=== PATIENT | female | born 1955 | race Caucasian/White ===

== ENCOUNTER 2023-11-14 20:21 | Inpatient (IN) | payer MEDICARE, MEDICAID ==
[~2023-11-14] VITALS: Ht 154.9 cm; Wt 88.0 kg
[2023-11-14] MEDS: MORPHINE SULFATE 10 MG/ML CPJ IM ONE (21:15)
[2023-11-14 21:58] LABS: BASOPHILS % 0.8 % (0.0-2.0); EOSINOPHILS % 0.9 % (0.0-5.0); HEMATOCRIT. 36.7 % (36.0-48.0); LYMPHOCYTES % 34.7 % (20.0-50.0); MEAN CORPUSCULAR HEMOGLOBIN 29.5 pg (28.0-32.0); MEAN CORPUSCULAR HGB CONC 32.6 g/dL (31.0-37.0); MEAN CORPUSCULAR VOLUME 90.6 fL (81.0-99.0); MEAN PLATELET VOLUME 8.4 fl (7.4-10.4); MONOCYTES % 9.2 % (2.0-8.0); NEUTROPHILS % 54.4 % (40.0-76.0); PLATELET 259 x1000/uL (130-400); RED BLOOD CELL COUNT 4.05 mill/uL (4.2-5.4); RED CELL DISTRIBUTION WIDTH 14.5 % (11.6-14.6); WHITE BLOOD COUNT 7.8 x1000/uL (4.5-11.0)
[2023-11-14 22:08] LABS: ALANINE AMINOTRANSFERASE 22 IU/L (10-49); ALBUMIN 4.3 g/dL (3.2-4.8); ASPARTATE AMINOTRANSFERASE 25 IU/L (<34); BILIRUBIN TOTAL 0.3 mg/dL (0.1-1.0); CALCIUM 9.2 mg/dL (8.7-10.4); CARBON DIOXIDE 26 mEq/L (21-32); CHLORIDE 107 mEq/L (98-107); CREATININE 0.7 mg/dL (0.6-1.0); GLUCOSE 96 mg/dL (70-105); PROTEIN TOTAL 7.3 g/dL (6.0-8.3); SODIUM 139 mEq/L (136-145); UREA NITROGEN BLOOD 29 mg/dL (9-23)
[2023-11-14] MEDS: KETOROLAC 60MG/2ML VIAL IM ONE (22:31)
[2023-11-14] MEDS ORDERED: IPRATROPIUM/ALBUTEROL 0.5-3(2.5)MG/3ML NEB HHN PRN (23:45)
[2023-11-14] MEDS ORDERED: GUAIFENESIN 200MG/10ML SUGAR FREE UDC PO PRN (23:45)
[2023-11-14] MEDS ORDERED: CLONIDINE 0.1MG TABLET PO PRN (23:45)
[2023-11-14] MEDS ORDERED: ACETAMINOPHEN 325MG TABLET PO PRN (23:45)
[2023-11-14] MEDS ORDERED: ONDANSETRON HCL 4MG/2ML INJ IV PRN (23:45)
[2023-11-14] MEDS ORDERED: MAGNESIUM/ALUMINUM HYDROXIDE/SIMETHICONE 30ML UDC PO PRN (23:45)
[2023-11-14] MEDS: HYDROCODONE/ACETAMINOPHEN 5/325MG TABLET PO ONE (23:48)
[2023-11-14] MEDS: KETOROLAC 15MG/ML VIAL IV ONE (23:49)
[2023-11-15 00:22] LABS: FOLIC ACID (FOLATE) SERUM > 20.00 ng/mL (>5.38)
[2023-11-15 00:36] LABS: VITAMIN B12 SERUM > 2000 pg/mL (211-911)
[2023-11-15 06:06] LABS: BASOPHILS % 0.9 % (0.0-2.0); EOSINOPHILS % 0.9 % (0.0-5.0); HEMATOCRIT. 33.7 % (36.0-48.0); HEMOGLOBIN. 11.2 g/dL (12.0-16.0); MEAN CORPUSCULAR HEMOGLOBIN 29.6 pg (28.0-32.0); MEAN CORPUSCULAR HGB CONC 33.3 g/dL (31.0-37.0); MEAN CORPUSCULAR VOLUME 88.9 fL (81.0-99.0); MEAN PLATELET VOLUME 8.2 fl (7.4-10.4); MONOCYTES % 10.1 % (2.0-8.0); NEUTROPHILS % 44.1 % (40.0-76.0); PLATELET 249 x1000/uL (130-400); RED BLOOD CELL COUNT 3.79 mill/uL (4.2-5.4); RED CELL DISTRIBUTION WIDTH 14.3 % (11.6-14.6); WHITE BLOOD COUNT 6.8 x1000/uL (4.5-11.0)
[2023-11-15 06:23] LABS: CALCIUM 8.8 mg/dL (8.7-10.4); CARBON DIOXIDE 29 mEq/L (21-32); CHLORIDE 108 mEq/L (98-107); CHOLESTEROL 181 mg/dL (<200); CREATININE 0.6 mg/dL (0.6-1.0); GLUCOSE 83 mg/dL (70-105); HDL CHOLESTEROL 57 mg/dL (>65); LDL CHOLESTEROL 104 mg/dL (5-100); POTASSIUM 3.8 mEq/L (3.5-5.1); SODIUM 140 mEq/L (136-145); TRIGLYCERIDE 50 mg/dL (0-150); UREA NITROGEN BLOOD 27 mg/dL (9-23)
[2023-11-15 08:00] VITALS: BP 99/56; PULSE 62; RESP 18; TEMP 97.5
[2023-11-15] MEDS: KETOROLAC 15MG/ML VIAL IV PRN ×2 (09:30→17:15)
[2023-11-15 12:00] VITALS: BP 118/67; PULSE 72; RESP 18; TEMP 98.7
[2023-11-15] MEDS ORDERED: ACETAMINOPHEN 325MG TABLET PO PRN (12:15)
[2023-11-15 13:49] VITALS: BP 99/56; PULSE 62; RESP 20; TEMP 97.5
[2023-11-15 16:00] VITALS: BP 109/58; PULSE 70; RESP 19; TEMP 97.9
[2023-11-15] MEDS: FAMOTIDINE 20MG TABLET PO SCH (21:40)
[2023-11-16 08:00] VITALS: BP 118/63; PULSE 65; RESP 18; TEMP 97.7
[2023-11-16] MEDS ORDERED: KETO10TA2 MT ×3 (09:07→09:13)
[2023-11-16] MEDS ORDERED: FAMO-287 MT (09:10)
[2023-11-16] MEDS ORDERED: ATOR20TA65 MT (09:10)
[2023-11-16 12:00] VITALS: BP 121/88; PULSE 75; RESP 19; TEMP 98.6
[2023-11-16 12:03] VITALS: BP 130/70; PULSE 70; TEMP 98; O2SAT 98
== END 2023-11-16 12:33 | disposition home health service (06) | DRG 605 ==
LOC: ER 20:21 → 6EST 23:17 → EDBEDREQTM 23:25 → EDBEDREQ 23:25
PROVIDERS: ADMIT Hospitalist; ATTEND Hospitalist
DX: S40.012A Contusion of left shoulder, initial encounter (principal); G62.9 Polyneuropathy, unspecified; E78.5 Hyperlipidemia, unspecified; Z88.0 Allergy status to penicillin; W01.0XXA Fall on same level from slipping, tripping and stumbling without subsequent striking against object, initial encounter; Y93.89 Activity, other specified; Y92.89 Other specified places as the place of occurrence of the external cause; Y99.8 Other external cause status; S80.02XA Contusion of left knee, initial encounter
CPT/HCPCS: 36415; 71045; 73030; 73560; 80048; 80053; 80061; 82607; 82746; 85025; 93970; 97162; 97166; 97535; 99285; J1885